=== PATIENT | female | born 1985 | race African-American/Black ===

== ENCOUNTER 2023-12-30 11:42 | Emergency (ER) | payer SELFPAY | END 2023-12-30 12:20 | disposition home or self-care (01) | LOC: JD.ED 11:42 | DX: G62.9 Polyneuropathy, unspecified (principal); T50.905A Adverse effect of unspecified drugs, medicaments and biological substances, initial encounter; Z88.1 Allergy status to other antibiotic agents; Z90.49 Acquired absence of other specified parts of digestive tract | CPT/HCPCS: 99283; 99284 ==